=== PATIENT | female | born 1950 | race Caucasian/White ===

== ENCOUNTER → 2016-06-24 | Outpatient (CLI) | payer BC ==
[~2016-06-24] MED LIST: ALENDRONATE SOD70 MG PO; ASPIRIN EC81 MG PO; BENICAR HCT 401 EAC1 PO; BYSTOLIC10 MG PO; CO Q-10100 MG PO; FEMARA 2.5 MG2.5 MG PO; FISH OIL 1,0001 EAC4 PO; FISH OIL1000 MG PO; FLAX SEED OIL1000 MG PO; GUIATUSS AC 1515 ML PO; LANTUS (IN100 UNIT/M SUB-Q; NORCO 5-325 MG1 TAB PO; NORVASC2.5 MG PO; NOVOLOG100 UNIT/M SUB-Q; PLAVIX75 MG PO; RED YEAST RICE600 MG PO; SOLIQUA 100 UNIT3 ML SUB-Q; THERAGRAN-M1 TAB PO; TRICOR 145 MG145 MG PO; VITAMIN D-32000 UNI1 PO; ZETIA10 MG PO
== END | disposition disaster alternative care site (69) ==
LOC: GBCOE 09:28
DX: C50.412 Malignant neoplasm of upper-outer quadrant of left female breast (principal); Z79.811 Long term (current) use of aromatase inhibitors

== ENCOUNTER → 2016-10-06 | Outpatient (CLI) | payer BC | END | disposition disaster alternative care site (69) | LOC: GBCOE 11:14 | DX: Z12.31 Encounter for screening mammogram for malignant neoplasm of breast (principal); R92.1 Mammographic calcification found on diagnostic imaging of breast; Z85.3 Personal history of malignant neoplasm of breast; Z98.890 Other specified postprocedural states | CPT/HCPCS: G0202 ==

== ENCOUNTER → 2016-10-13 | Outpatient (CLI) | payer BC ==
--- NOTE | 2016-10-13 10:27 | NUR ---
[facility] Introduced self and explained role of navigator. Navigator brochure with my contact information circled given to patient. Permission received for follow up call tomorrow. Will follow.
--- NOTE | 2016-10-14 15:25 | NUR ---
Follow up call made. Patient doing well. Denies pain, swelling or drainage at biopsy site. No need identified.
== END | disposition disaster alternative care site (69) ==
LOC: GPOC 10-09 14:00 → GBCOE 09:36 → GPOC 10:00
PROC: 0HBT3ZX Excision of Right Breast, Percutaneous Approach, Diagnostic (ICD-10-PCS; principal; 2016-10-13)
DX: R92.1 Mammographic calcification found on diagnostic imaging of breast (principal); M81.0 Age-related osteoporosis without current pathological fracture; R92.0 Mammographic microcalcification found on diagnostic imaging of breast; Z79.811 Long term (current) use of aromatase inhibitors; Z85.3 Personal history of malignant neoplasm of breast
CPT/HCPCS: J7050